=== PATIENT | female | born 1985 | race Caucasian/White ===

== ENCOUNTER → 2016-10-08 | Outpatient (CLI) | payer OTHER ==
[2016-10-08 15:17] LABS: CH 29.7; CHCM 33.9; HCT 37.5 % (34.0-46.0); HDW 2.44; HGB 12.7 gm/dL (11.4-16.0); MCH 29.9 pg (25.0-35.0); Mean Platelet Volume 6.9; RBC 4.25 m/uL (3.80-5.40); RDW 13.3 % (11.5-15.5)
--- NOTE | 2016-10-08 15:20 | US ---
EXAMINATION TYPE: US OB <= 14 wk fetus DATE OF EXAM: 10/08/2016 COMPARISON: NONE CLINICAL HISTORY: Confirm Dates Z36. No symptoms, EXAM PERFORMED: OBTA EXAM MEASUREMENTS: GESTATIONAL AGE / DATING Physician Established: (12 weeks/5 days) EDC: 04/17/2017 Dates by LMP: (12 weeks/5 days) EDC: 04/17/2017 Dates by First Scan: COLLECTOR Dates by Current Scan for: (13 weeks/1 days) EDC: 04/14/2017 MATERNAL ANATOMY Uterus: 14.5 x 9.4 x 8.4cm Right Ovary: not seen due to bowel gas and enlarging UT Left Ovary: 4.2 x 2.7 x 2.4cm Post CDS / Adnexa: wnl Presence of free fluid: no Presence of corpus luteal cyst: not seen Presence of subchorionic bleed: no GESTATION / SURVEY CRL: 6.9cm (13 weeks/1 days) MSD: wnl Yolk Sac (normal less than 6mm): not seen Heart Rate: 175 bpm Rhythm: Normal IUP: Viable IUP Date of LMP: 07/11/2016 Beta HcG (if available): not available IMPRESSION: Single viable intrauterine .
[2016-10-08 16:57] LABS: Glucose 75 mg/dL (74-99); Non-African American GFR(MDRD) >60 (>60 ml/min/1.73 sqM)
[2016-10-08 17:47] LABS: Hepatitis B Surface Ag Index 0.05
== END | disposition home or self-care (01) ==
LOC: RADUSWWP 14:26
PROVIDERS: ATTEND Obstetrics & Gynecology
DX: Z36 Encounter for antenatal screening of mother (principal); Z3A.13 13 weeks gestation of pregnancy
CPT/HCPCS: 36415; 76801; 82565; 82947; 85027; 86762; 86780; 86850; 86900; 86901; 87340

== ENCOUNTER 2017-02-04 14:23 | Outpatient (CLI) | payer OTHER ==
[2017-02-04 15:17] LABS: Basophils % (A) 0 %; Eosinophils # (A) 0.2 k/uL (0-0.7); Eosinophils % (A) 3 %; HCT 32.9 % (34.0-46.0); HGB 10.8 gm/dL (11.4-16.0); Lymphocytes # (A) 1.2 k/uL (1.0-4.8); Lymphocytes % (A) 16 %; MCH 30.3 pg (25.0-35.0); MCHC 32.8 g/dL (31.0-37.0); MCV 92.3 fL (80.0-100.0); Mean Platelet Volume 7.8; Monocytes # (A) 0.4 k/uL (0-1.0); Monocytes % (A) 6 %; Neutrophils # (A) 5.6 k/uL (1.3-7.7); Neutrophils % (A) 75 %; Platelet Count 188 k/uL (150-450); RBC 3.56 m/uL (3.80-5.40); RDW 14.6 % (11.5-15.5); WBC 7.5 k/uL (3.8-10.6)
[2017-02-04 15:24] LABS: Appearance,Urine Cloudy (Clear); Bacteria,Urine Occasional /hpf; Bilirubin,Urine Negative (Negative); Blood,Urine Negative (Negative); Color,Urine Colorless; Glucose,Urine (UA) Negative (Negative); Ketones,Urine Negative (Negative); Leukocyte Esterase,Urine Negative (Negative); Nitrite,Urine Negative (Negative); PH, Urine 7.5 (5.0-8.0); Protein,Urine Negative (Negative); RBC,Urine 1 /hpf (0-5); Specific Gravity,Urine 1.002 (1.001-1.035); Squamous Epithelial Cell,Urine 7 /hpf (0-4); Urobilinogen,Urine <2.0 mg/dL (<2.0); WBC,Urine 2 /hpf (0-5)
[2017-02-04 15:26] LABS: ALT 32 U/L (9-52); AST 17 U/L (14-36); LDH 405 U/L (313-618); Uric Acid 3.8 mg/dL (3.7-7.4)
--- NOTE | 2017-03-31 06:48 | P.MSEPDOC ---
Presenting Problems - Arrival Data Date of Arrival on Unit: 02/04/17 Time of Arrival on Unit: 14:23 Mode of Transport: Ambulatory Medical History - Information : 1 Para: 0 Term: 0 : 0 Abortions: Spontaneous or Elective: 0 Number of Living Children: 0 - Gestational Age Gestational Age by BASHIR (wks/days): 29 Weeks and 4 Days Disposition - Disposition Discharge Date: 02/04/17 Discharge Time: 15:44 I agree with the RN Medical Screening Exam: Yes Risk & Benefit of care provided described in d/c instruction: Yes Diagnosis: GESTATIONAL HTN W/O SIGNIFICANT PROTEINURIA, THIRD TRIMESTER
== END 2017-02-04 15:44 | disposition home or self-care (01) ==
LOC: FBPOP 14:23
PROVIDERS: ATTEND Obstetrics & Gynecology
DX: O13.3 Gestational [pregnancy-induced] hypertension without significant proteinuria, third trimester (principal); Z3A.29 29 weeks gestation of pregnancy
CPT/HCPCS: 59025; 81001; 82565; 83615; 84450; 84460; 84550; 85025; 99215

== ENCOUNTER 2017-03-19 10:15 | Outpatient (CLI) | payer OTHER ==
[2017-03-19 10:45] LABS: Basophils % (A) 0 %; Eosinophils # (A) 0.2 k/uL (0-0.7); Eosinophils % (A) 3 %; HCT 32.7 % (34.0-46.0); HGB 10.8 gm/dL (11.4-16.0); Lymphocytes # (A) 1.3 k/uL (1.0-4.8); Lymphocytes % (A) 16 %; MCH 30.3 pg (25.0-35.0); MCHC 33.1 g/dL (31.0-37.0); MCV 91.7 fL (80.0-100.0); Mean Platelet Volume 7.5; Monocytes # (A) 0.3 k/uL (0-1.0); Monocytes % (A) 4 %; Neutrophils # (A) 6.3 k/uL (1.3-7.7); Neutrophils % (A) 76 %; Platelet Count 168 k/uL (150-450); RBC 3.57 m/uL (3.80-5.40); RDW 13.9 % (11.5-15.5); WBC 8.4 k/uL (3.8-10.6)
[2017-03-19 10:49] LABS: Appearance,Urine Turbid (Clear); Bacteria,Urine Many /hpf; Bilirubin,Urine Negative (Negative); Blood,Urine Negative (Negative); Color,Urine Light Yellow; Glucose,Urine (UA) Negative (Negative); Ketones,Urine Negative (Negative); Leukocyte Esterase,Urine Negative (Negative); Mucus,Urine Rare /hpf; Nitrite,Urine Negative (Negative); Protein,Urine Trace (Negative); RBC,Urine 4 /hpf (0-5); Specific Gravity,Urine 1.007 (1.001-1.035); Squamous Epithelial Cell,Urine 61 /hpf (0-4); Urobilinogen,Urine <2.0 mg/dL (<2.0); WBC,Urine 7 /hpf (0-5)
[2017-03-19 11:00] LABS: ALT 19 U/L (9-52); AST 14 U/L (14-36); Blood Urea Nitrogen 5 mg/dL (7-17); LDH 409 U/L (313-618)
[2017-03-19 11:27] VITALS: BP 136/82; PULSE 99; RESP 18; TEMP 97.7
--- NOTE | 2017-05-07 17:24 | P.MSEPDOC ---
Presenting Problems - Arrival Data Date of Arrival on Unit: 03/19/17 Time of Arrival on Unit: 10:15 Mode of Transport: Ambulatory Medical History - Information : 1 Para: 0 Term: 0 : 0 Abortions: Spontaneous or Elective: 0 Number of Living Children: 0 - Gestational Age Gestational Age by BASHIR (wks/days): 35 Weeks and 5 Days Vital Signs - Temperature Temperature: 97.7 F Temperature Source: Oral - Pulse Right Pulse Oximetery Pulse Rate: 99 Pulse Assessment Method: Pulse Oximetry - Respirations Respiratory Rate: 18 Oxygen Delivery Method: Room Air O2 Sat by Pulse Oximetry: 98 - Blood Pressure Right Arm Blood Pressure: 136/82 Blood Pressure Mean: 100 Blood Pressure Source: Automatic Cuff Medical Screen Scoring (Post) - Cervical Exam Dilation: Exam Deferred Effacement: Exam Deferred Membranes: Intact - Uterine Contractions Frequency: N/A Duration: N/A Intensity: N/A - Maternal Vital Signs Maternal Temperature: N/A Maternal Blood Pressure: N/A Signs of Preeclampsia: N/A Maternal Respirations: N/A - Pain Assessment Pain Scale Used: Numeric (1 - 10) Pain Intensity: 0 Pain Management Goal: 2 - Maternal Trauma Maternal Trauma: N/A - Assessment Heart Rate: 135 Heart Rate - NICHD Category: Category I (Normal) = 0 NST: Reactive Position: N/A Station: N/A - Total Score Total Score (Post): 0 - Post Treatment Level of Risk Post Treatment Level of Risk: Low (0-5) Physician Notification (Post) - Physician Notified Physician Notified Date: 03/19/17 Physician Notified Time: 11:10 Physician/Practitioner Notified:: Dr Keen Spoke With: Dr Keen - telephone New Order Received: Yes (discharge with follow up Mon or Tues in office for BP and NST) - Notification Comment Comment: PIH workup- Labs, serial BPs, NST wnl, discharged. Disposition - Disposition OB Disposition: Discharge to home Discharge Date: 03/19/17 Discharge Time: 11:15 I agree with the RN Medical Screening Exam: Yes Risk & Benefit of care provided described in d/c instruction: Yes Diagnosis: GESTATIONAL HTN W/O SIGNIFICANT PROTEINURIA, THIRD TRIMESTER
== END 2017-03-19 11:15 | disposition home or self-care (01) ==
LOC: FBPOP 10:15
PROVIDERS: ATTEND Obstetrics & Gynecology
DX: O13.3 Gestational [pregnancy-induced] hypertension without significant proteinuria, third trimester (principal); Z3A.35 35 weeks gestation of pregnancy
CPT/HCPCS: 59025; 81001; 82565; 83615; 84450; 84460; 84520; 84550; 85025; 99215

== ENCOUNTER 2017-04-14 16:06 | Inpatient (IN) | payer OTHER ==
[2017-04-14] MEDS ORDERED: DINOPROSTONE 10 MG INSERT.ER VAGINAL ONE (16:15)
--- NOTE | 2017-04-14 16:56 | P.HPOB ---
History of Present Illness H&P Date: 04/14/17 Chief Complaint: Induction for gestational hypertension. This patient is a pleasant 31-year-old 1 para 0 female estimated date of confinement 04/18/2017 estimated gestational age 39-3/7 weeks gestation who is admitted to labor and delivery for two-stage induction of labor secondary to gestational hypertension. Patient's history is such that throughout the she is intermittently had hypertension the highest was 150/70 more normally she would run 130s over 80s with occasional 140 over 90s. Patient's had previous blood work evaluation which was negative. Most recently her blood pressure has been looking good however due to term near her EDC we have elected to proceed with delivery at this time. Patient declines headaches or other signs or symptoms of preeclampsia. is otherwise been uncomplicated with the exception of obesity. Review of Systems Gastrointestinal: Reports heartburn Genitourinary: Reports Menstruation: Reports amenorrhea Past Medical History Past Medical History: No Reported History History of Any Multi-Drug Resistant Organisms: None Reported Past Surgical History: No Surgical Hx Reported Past Anesthesia/Blood Transfusion Reactions: No Reported Reaction Past Psychological History: No Psychological Hx Reported Smoking Status: Never smoker Past Alcohol Use History: None Reported Past Drug Use History: None Reported Medications and Allergies Home Medications Medication Instructions Recorded Confirmed Type Pnv,Calcium 72/Iron/Folic Acid 1 tab PO DAILY 03/19/17 04/14/17 History [ Plus Tablet] Allergies Allergy/AdvReac Type Severity Reaction Status Date / Time No Known Allergies Allergy Verified 04/14/17 16:15 Exam - Vital Signs Vital signs: Intake and Output 04/14/17 04/14/17 04/14/17 06:59 14:59 22:59 Other: Weight 122.47 kg Patient Weight 04/15/17 06:59 Weight 122.47 kg - OBG Physical Exam Abdomen: bowel sounds normal, no diffuse tenderness, no bruit present, no guarding noted, no hepatomegaly, no splenomegaly, no mass Vulva: both: normal Vagina: normal moisture, no discharge Cervix: Cervix is closed and thick and the head is -1 to -2 station. Uterus: enlarged (Fundal height is 41 cm.) Adnexa: both: normal Results blood work shows she is oh positive, rubella immune, RPR nonreactive, hepatitis B negative, group B strep was negative, Glucola was normal, ultrasounds have been normal. Assessment and Plan Assessment: This is a pleasant 31-year-old 1 para 0 female 39-3/7 weeks gestation who is admitted to labor and delivery for two-stage induction of labor secondary to gestational hypertension and unfavorable cervix. Patient's blood pressures beautiful at this point and there is no evidence of preeclampsia, however I am going to draw preeclampsia labs when she gets her IV placed. Plan is Cervidil induction of labor and anticipate vaginal delivery. (1) Third trimester Current Visit: Yes Status: Acute Code(s): Z34.93 - ENCNTR FOR SUPRVSN OF NORMAL PREG, UNSP, THIRD TRIMESTER SNOMED Code(s): 30445199 (2) Gestational hypertension Current Visit: Yes Status: Acute Code(s): O13.9 - GESTATIONAL HTN W/O SIGNIFICANT PROTEINURIA, UNSP TRIMESTER SNOMED Code(s): 75134634
[2017-04-14 17:00] VITALS: BMI 44.9
[2017-04-15] MEDS ORDERED: TERBUTALINE 1 MG/ML VIAL SQ PRN (05:18)
[2017-04-15] MEDS ORDERED: OXYTOCIN 20 UNITS/1000 ML NS 1,000 ML IV SCH (05:18)
[2017-04-15] MEDS ORDERED: METHYLERGONOVINE 0.2 MG/ML 1 ML AMP IM PRN (05:18)
[2017-04-15] MEDS ORDERED: CARBOPROST TROMETHAMINE 250 MCG/ML 1 ML AMP IM PRN (05:18)
[2017-04-15] MEDS ORDERED: LIDOCAINE 1% (PF) 10 MG/ML (30 ML SDV) SQ PRN (05:18)
[2017-04-15] MEDS ORDERED: OXYTOCIN 10 UNIT/ML 1 ML VIAL IM PRN (05:18)
[2017-04-15] MEDS: LACTATED RINGERS 1,000 ML IV SCH ×2 (05:58→12:43)
[2017-04-15 06:00] LABS: Basophils % (A) 0 %; Eosinophils # (A) 0.2 k/uL (0-0.7); Eosinophils % (A) 2 %; HCT 35.3 % (34.0-46.0); HGB 11.8 gm/dL (11.4-16.0); Lymphocytes % (A) 10 %; MCH 30.4 pg (25.0-35.0); MCHC 33.4 g/dL (31.0-37.0); Mean Platelet Volume 7.8; Monocytes # (A) 0.4 k/uL (0-1.0); Monocytes % (A) 4 %; Neutrophils # (A) 8.5 k/uL (1.3-7.7); Neutrophils % (A) 83 %; Platelet Count 155 k/uL (150-450); RBC 3.88 m/uL (3.80-5.40); RDW 14.3 % (11.5-15.5); WBC 10.2 k/uL (3.8-10.6)
[2017-04-15] MEDS: BUTORPHANOL 1 MG/ML 1 ML VIAL IV PRN ×4 (06:09→15:45)
[2017-04-15 06:55] LABS: INR 0.9 (<1.2); Prothrombin Time 9.3 sec (9.0-12.0)
[2017-04-15 06:59] LABS: ALT 27 U/L (9-52); AST 19 U/L (14-36); Blood Urea Nitrogen 9 mg/dL (7-17); LDH 494 U/L (313-618); Uric Acid 5.2 mg/dL (3.7-7.4)
[2017-04-15 07:19] LABS: Partial Thromboplastin Time 21.6 sec (22.0-30.0)
[2017-04-15] MEDS ORDERED: IBUPROFEN 600 MG TAB PO PRN (18:34)
[2017-04-15] MEDS ORDERED: SIMETHICONE 80 MG CHEWABLE PO PRN (18:34)
[2017-04-15] MEDS ORDERED: diphenhydrAMINE 25 MG CAP PO PRN (18:34)
[2017-04-15] MEDS ORDERED: BENZOCAINE/MENTHOL SPRAY 1 GM/SPRAY AEROSOL TOPICAL PRN (18:34)
[2017-04-15] MEDS ORDERED: BISACODYL 10 MG SUPP RECTAL PRN (18:34)
[2017-04-15] MEDS ORDERED: diphenhydrAMINE 50 MG/ML 1 ML VIAL IVP PRN (18:34)
[2017-04-15] MEDS ORDERED: WITCH HAZEL 1 EACH MED..PAD TOPICAL PRN (18:34)
[2017-04-15] MEDS ORDERED: ZOLPIDEM 5 MG TAB PO PRN (18:34)
[2017-04-15] MEDS ORDERED: HYDROCORTISONE 2.5% RECTAL CREAM 30 GM TUBE RECTAL PRN (18:34)
[2017-04-15] MEDS ORDERED: ACETAMINOPHEN TAB 325 MG TAB PO PRN (18:34)
[2017-04-15] MEDS ORDERED: LANOLIN CREAM 5 GM TUBE TOPICAL PRN (18:34)
--- NOTE | 2017-04-15 18:38 | P.PROBDLV ---
Vaginal Delivery Note - . Vaginal Delivery Note: Normal spontaneous vaginal delivery viable female infant Apgars 8 and 9 delivery time is 1811 hrs. Please see dictated H&P for intimate details of this patient's admission. Brief summary this is a pleasant 31-year-old 1 para 0 female 39-3/7 weeks gestation who is admitted to labor and delivery last evening for two- stage induction of labor secondary to gestational hypertension, mild, and unfavorable cervix. Patient is admitted last evening has a Cervidil placed.'s morning patient is 2 cm dilated and has artificial rupture membranes for clear fluid. Patient's labor is augmented with Pitocin. Patient only requests and receives Stadol for pain control. Patient's labor progresses quickly and she pushes approximately 2 times pushes the head to the perineum. She has a very tight perineum and therefore it is infiltrated 1% lidocaine and a midline episiotomy is made. We then have controlled delivery of the 's head over the perineum. Mouth and nares are bulb suctioned there is no evidence of nuchal cord. With gentle downward traction we have delivery anterior and posterior shoulder and rest this 's body. This is a vigorous viable female Apgars are 8 and 9 delivery time is 1811 hrs. After delivery of the infant the umbilical cord is doubly clamped and cut and appears to be trivascular. Placenta spontaneously delivered intact. This time close inspection of the perineum shows a second-degree laceration which is repaired with 3-0 Vicryl in the usual fashion. Excellent reapproximation is noted. All counts are correct 3. There are no complications. and mother are stable delivery room.
[2017-04-15] MEDS: SENNOSIDES-DOCUSATE SODIUM 1 EACH TAB PO SCH (21:50)
--- NOTE | 2017-04-16 06:21 | P.PNOBGVD ---
Subjective - Subjective Patient reports: Reports appetite normal, Reports voiding normally, Reports pain well controlled, Reports ambulating normally : doing well Objective - Latest Vital Signs Latest vital signs: Vital Signs Temp Pulse Resp BP 04/16/17 04:00 98.9 F 90 18 125/76 04/16/17 00:00 99.2 F 91 16 114/69 04/15/17 20:30 96 15 129/72 04/15/17 20:00 98 F 82 15 124/70 04/15/17 19:30 91 15 112/76 04/15/17 19:15 94 15 118/80 04/15/17 19:00 20 04/15/17 18:45 20 Intake and Output 04/15/17 04/15/17 04/16/17 14:59 22:59 06:59 Intake Total 1000 Balance 1000 Intake: Intake, IV Titration 1000 Amount Lactated Ringers 1,000 ml 1000 @ 125 mls/hr IV .Q8H AJ Rx#:[id number] Other: # Voids 1 - Exam Lungs: bilateral: normal Chest: Normal S1, Normal S2 Extremities: Present: normal Abdomen: Present: normal appearance, soft Uterus: Present: normal, firm - Labs Labs: Abnormal Lab Results - Last 24 Hours (Table) 04/15/17 04/15/17 Range/Units 06:36 06:36 APTT 21.6 L (22.0-30.0) sec Creatinine 0.50 L (0.52-1.04) mg/dL Assessment and Plan Assessment: day #1. Patient is resting without complaints and wishes to go home. Vital signs are stable she is afebrile. Uterus is firm nontender she's having normal lochia. My impression this is a normal course. Plan is to continue routine care discharge home later today. (1) Third trimester Current Visit: Yes Status: Acute Code(s): Z34.93 - ENCNTR FOR SUPRVSN OF NORMAL PREG, UNSP, THIRD TRIMESTER SNOMED Code(s): 55700986 (2) Gestational hypertension Current Visit: Yes Status: Acute Code(s): O13.9 - GESTATIONAL HTN W/O SIGNIFICANT PROTEINURIA, UNSP TRIMESTER SNOMED Code(s): 48080011
--- NOTE | 2017-04-16 06:24 | P.DS ---
Providers Date of admission: 04/14/17 16:06 Expected date of discharge: 04/16/17 Attending physician: Leoncio Keen Primary care physician: Stated None - Discharge Diagnosis(es) (1) Third trimester Current Visit: Yes Status: Acute (2) Gestational hypertension Current Visit: Yes Status: Acute Hospital Course: Please see dictated H&P for intimate details of this patient's admission. Brief summary this is a pleasant 31-year-old 1 para 0 female 39-3/7 weeks gestation admitted to labor and delivery for two-stage induction of labor secondary to mild gestational hypertension. Patient is admitted has uncomplicated induction of labor goes on to have a vaginal delivery viable female infant. Please see dictated delivery note. day #1 patient is without complaints wishes to go home. Patient's felt be stable for discharge home follow up with me in 6 weeks. Procedures: Two-stage induction of labor and normal vaginal delivery. Patient Condition at Discharge: Good Plan - Discharge Summary New Discharge Prescriptions: New Ibuprofen [Motrin] 600 mg PO Q6HR PRN #40 tab PRN Reason: Mild Pain Or Fever >= 100.5 No Action Pnv,Calcium 72/Iron/Folic Acid [ Plus Tablet] 1 tab PO DAILY Discharge Medication List Pnv,Calcium 72/Iron/Folic Acid [ Plus Tablet] 1 tab PO DAILY 03/19/17 [ History] Ibuprofen [Motrin] 600 mg PO Q6HR PRN #40 tab 04/16/17 [Rx] Follow up Appointment(s)/Referral(s): Leoncio Keen MD [STAFF PHYSICIAN] - 05/26/17 9:15 am Patient Instructions/Handouts: Vaginal Delivery (DC) Activity/Diet/Wound Care/Special Instructions: No intercourse or anything per vagina for 6 weeks. Please call if any fever, chills, excessive vaginal bleeding, and/or abdominal pain. Discharge Disposition: HOME SELF-CARE
[2017-04-16] MEDS: SENNOSIDES-DOCUSATE SODIUM 1 EACH TAB PO SCH ×2 (11:17→12:26)
[2017-04-16 17:24] VITALS: BP 132/78; PULSE 88; RESP 18; TEMP 98.6
== END 2017-04-16 19:42 | disposition home or self-care (01) | DRG 775 ==
LOC: 4FBP 16:06
PROVIDERS: ADMIT Obstetrics & Gynecology; ATTEND Obstetrics & Gynecology
PROC: 3E033VJ Introduction of Other Hormone into Peripheral Vein, Percutaneous Approach (ICD-10-PCS; principal; 2017-04-15)
PROC: 10E0XZZ Delivery of Products of Conception, External Approach (ICD-10-PCS; principal; 2017-04-15)
PROC: 0KQM0ZZ Repair Perineum Muscle, Open Approach (ICD-10-PCS; principal; 2017-04-15)
PROC: 10907ZC Drainage of Amniotic Fluid, Therapeutic from Products of Conception, Via Natural or Artificial Opening (ICD-10-PCS; principal; 2017-04-15)
PROC: 0W8NXZZ Division of Female Perineum, External Approach (ICD-10-PCS; principal; 2017-04-15)
DX: O13.4 Gestational [pregnancy-induced] hypertension without significant proteinuria, complicating childbirth (principal); Z68.41 Body mass index [BMI] 40.0-44.9, adult; O99.214 Obesity complicating childbirth; E66.9 Obesity, unspecified; O70.1 Second degree perineal laceration during delivery; Z37.0 Single live birth; Z3A.39 39 weeks gestation of pregnancy
CPT/HCPCS: 82565; 83615; 84450; 84460; 84520; 84550; 85025; 85610; 85730; 88307